=== PATIENT | female | born 1970 | race Two or more races ===

== ENCOUNTER 2024-07-20 16:24 | Emergency (ER) | payer SELFPAY ==
[~2024-07-20] VITALS: Ht 152.4 cm; Wt 47.7 kg
[2024-07-20 16:24] VITALS: BP 126/65; PULSE 84; RESP 16; O2SAT 94
== END 2024-07-20 18:28 | disposition left against medical advice (07) ==
LOC: ER 16:24
DX: R33.9 Retention of urine, unspecified (principal); E78.5 Hyperlipidemia, unspecified